=== PATIENT | male | born 1965 | race Caucasian/White ===

== ENCOUNTER 2017-11-05 05:53 | Emergency (ER) | payer BC ==
[2017-11-05 05:53] VITALS: BMI 22.2
[2017-11-05 06:04] VITALS: RESP 16; O2SAT 98
--- NOTE | 2017-11-05 06:45 | C.PDOC ---
History Of Present Illness 52 year old male presents to the ER with a complaint of a burning sensation to the left eye. Denies change in vision or discharge. 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 Chief Complaint (Nursing): Eye Problem History Per: Patient History/Exam Limitations: no limitations Onset/Duration Of Symptoms: Hrs Current Symptoms Are (Timing): Still Present Injury To Eye?: No Wears Contact Lens?: No Associated Symptoms: Other (Burning sensation). denies: Pain, Decreased Vision , Swelling, Itching, Discharge From Eye Recent travel outside of the [place]: No Past Medical History Reviewed: Historical Data, Nursing Documentation, Vital Signs Vital Signs: Last Vital Signs Temp 97.6 F 11/05/17 07:05 Pulse 80 11/05/17 07:05 Resp 16 11/05/17 07:05 BP 145/90 11/05/17 07:05 Pulse Ox 98 11/05/17 07:05 - Medical History PMH: No Chronic Diseases Surgical History: No Surg Hx Family History: States: Unknown Family Hx - Social History Hx Tobacco Use: No Hx Alcohol Use: Yes Hx Substance Use: No - Immunization History Hx Tetanus Toxoid Vaccination: No Hx Influenza Vaccination: No Hx Pneumococcal Vaccination: No Review Of Systems Constitutional: Negative for: Fever, Chills Eyes: Positive for: Other (Foreign body sensation). Negative for: Pain, Vision Change Physical Exam - Physical Exam Appears: Non-toxic, No Acute Distress Skin: Normal Color, Warm, Dry Head: Atraumatic, Normacephalic Eye(s): bilateral: Normal Inspection (Fluorescein exam was negative. Visual acuity is 20/20), PERRL, EOMI Ear(s): Bilateral: Normal Nose: Normal Oral Mucosa: Moist Lips: Normal Appearing Neurological/Psych: Oriented x3, Normal Speech ED Course And Treatment O2 Sat by Pulse Oximetry: 98 (Room air) Pulse Ox Interpretation: Normal Medical Decision Making Medical Decision Making: Patient reassured and instructed to follow up with addiction social worker for further evaluation. Disposition - Disposition Referrals: Jack Sanchez [Staff Provider] - Disposition: HOME/ ROUTINE Disposition Time: 20:36 Condition: STABLE Additional Instructions: return if eye pain worsening Prescriptions: Dextran 70/Hypromellose/Pf [Artificial Tears Drops] 1 each OP BID 7 Days #1 droperette Instructions: Eye Pain (ED) Forms: [employer] [facility] ([place] Islander) - Clinical Impression Clinical Impression: Pain in eye, Disorder of vision, Conjunctivitis - Scribe Statement The provider has reviewed the documentation as recorded by the Scribfrance Ortiz All medical record entries made by the Scribe were at my direction and personally dictated by me. I have reviewed the chart and agree that the record accurately reflects my personal performance of the history, physical exam, medical decision making, and the department course for this patient. I have also personally directed, reviewed, and agree with the discharge instructions and disposition.
[2017-11-05] MEDS ORDERED: Fluorescein 1 mg Ophthalmic Strip OS ONE (06:48)
[2017-11-05] MEDS ORDERED: Fluorescein 1 mg Ophthalmic Strip ONE (06:48)
[2017-11-05] MEDS ORDERED: Tetracaine 0.5% Ophth 2 ML BOTTLE OS ONE (06:50)
[2017-11-05] MEDS ORDERED: Tetracaine 0.5% Ophth (OR ONLY) ONE (06:51)
[2017-11-05 07:07] VITALS: BP 145/90; PULSE 80; TEMP 97.6
== END 2017-11-05 07:07 | disposition home or self-care (01) ==
LOC: C.ER 05:53
DX: H10.9 Unspecified conjunctivitis (principal); H53.9 Unspecified visual disturbance; H57.12 Ocular pain, left eye

== ENCOUNTER 2017-11-27 12:04 | Emergency (ER) | payer BC ==
[2017-11-27 12:04] VITALS: BMI 22.2
[2017-11-27 12:11] VITALS: TEMP 97.8
--- NOTE | 2017-11-27 13:28 | C.PDOC ---
History Of Present Illness 52-year-old male, presents to the emergency department with complaints of intermittent left-sided chest pain for the past 2 weeks. Pain is non radiating and associated with a mild generalized headache. Patient states he was evaluated by clinic and "everything was normal." Patient reports chest pain returned at 01:00 this morning and has not gone away since. Denies cough, trauma , numbness, weakness, SOB, fever, or back pain. Time Seen by Provider: 11/27/17 12:52 Chief Complaint (Nursing): Chest Pain History Per: Patient History/Exam Limitations: no limitations Onset/Duration Of Symptoms: Days Current Symptoms Are (Timing): Still Present Severity: Moderate Past Medical History Reviewed: Historical Data, Nursing Documentation, Vital Signs Vital Signs: Last Vital Signs Temp 97.8 F 11/27/17 12:07 Pulse 68 11/27/17 16:13 Resp 20 11/27/17 16:13 BP 120/80 11/27/17 16:13 Pulse Ox 100 11/27/17 18:56 Family History: States: No Known Family Hx - Social History Hx Tobacco Use: No Hx Alcohol Use: Yes Hx Substance Use: No - Immunization History Hx Tetanus Toxoid Vaccination: No Hx Influenza Vaccination: No Hx Pneumococcal Vaccination: No Review Of Systems Except As Marked, All Systems Reviewed And Found Negative. Constitutional: Negative for: Fever, Chills Cardiovascular: Positive for: Chest Pain. Negative for: Palpitations Respiratory: Negative for: Shortness of Breath Gastrointestinal: Negative for: Nausea, Vomiting Neurological: Positive for: Headache. Negative for: Dizziness Physical Exam - Physical Exam Appears: Non-toxic, No Acute Distress Skin: Warm, Dry, No Rash Head: Atraumatic, Normacephalic Eye(s): bilateral: Normal Inspection, PERRL, EOMI Nose: Normal Oral Mucosa: Moist Lips: Normal Appearing Throat: Normal Neck: Normal ROM Cardiovascular: Rhythm Regular, No Murmur Respiratory: Normal Breath Sounds Gastrointestinal/Abdominal: Soft, No Tenderness Back: Normal Inspection Extremity: Normal ROM Neurological/Psych: Oriented x3, Normal Speech ED Course And Treatment - Laboratory Results Result Diagrams: 11/27/17 13:56 11/27/17 13:56 ECG: Interpreted By Me ECG Rhythm: Sinus Rhythm ECG Interpretation: Normal Rate From EC O2 Sat by Pulse Oximetry: 100 (on RA) Pulse Ox Interpretation: Normal Progress Note: On re-exam, the patient reports improvement of symptoms. Lungs are CTA, heart is RRR, abdomen is soft, non-tender and tolerating PO well. Medical Decision Making Medical Decision Making: The patient has normal BP and no risk factors at this time. His chest pain has been over 2 weeks and does not requires observation to r/o ACS. Labs are normal and results were discussed with the patient. Disposition - Disposition Referrals: [facility] at [facility] [Outside] Disposition: HOME/ ROUTINE Disposition Time: 16:07 Condition: GOOD Additional Instructions: Follow up with the medical doctor within 1-2 days. Return if worsened. Prescriptions: Aspirin [Low Dose Aspirin EC] 81 mg PO DAILY #30 tablet. Instructions: Chest Pain (ED) Forms: [email or web address] [facility] (Macedonian) - Clinical Impression Clinical Impression: Chest pain - Scribe Statement The provider has reviewed the documentation as recorded by the Scribe (Roland Willis) All medical record entries made by the Scribe were at my direction and personally dictated by me. I have reviewed the chart and agree that the record accurately reflects my personal performance of the history, physical exam, medical decision making, and the department course for this patient. I have also personally directed, reviewed, and agree with the discharge instructions and disposition.
[2017-11-27] MEDS: Aspirin 325 mg EC Tablets PO STA (13:43)
[2017-11-27 14:00] LABS: BASO % 0.3 % (0.0-2.0); EOS # 0.2 K/uL (0.0-0.7); EOS % 2.6 % (0.0-4.0); HEMOGLOBIN 14.6 g/dL (12.0-18.0); LYMPH # 1.1 K/uL (1.0-4.3); LYMPH % 15.2 % (20.0-40.0); MEAN CELL VOLUME 88.6 fL (80.0-94.0); MEAN CORPUSCULAR HEMOGLOBIN 29.5 pg (27.0-31.0); MEAN CORPUSCULAR HGB CONC 33.3 g/dL (33.0-37.0); MEAN PLATELET VOLUME 9.1 fL (7.2-11.7); MONO # 0.4 K/uL (0.0-0.8); MONO % 5.8 % (0.0-10.0); NEUT # 5.3 K/uL (1.8-7.0); NEUT % 76.1 % (50.0-75.0); NRBC % 0.1 % (0.0-2.0); RBC 4.93 Mil/uL (4.40-5.90); RED CELL DISTRIBUTION WIDTH 12.9 % (11.5-14.5); WHITE BLOOD COUNT 6.9 K/uL (4.8-10.8)
[2017-11-27 15:25] VITALS: RESP 20
[2017-11-27 15:33] LABS: ALB/GLOB RATIO 1.1 (1.0-2.1); ALT/SGPT 44 U/L (21-72); AST/SGOT 56 U/L (17-59); BLOOD UREA NITROGEN 12 mg/dL (9-20); CALCIUM 8.6 mg/dl (8.6-10.4); GFR AFRICAN-AMERICAN > 60; GFR NON-AFRICAN AMERICAN > 60
--- NOTE | 2017-11-27 15:53 | RAD ---
HISTORY: chest pain COMPARISON: 04/27/2014 TECHNIQUE: Chest PA and lateral FINDINGS: LUNGS: No active pulmonary disease. PLEURA: No significant pleural effusion identified. No pneumothorax apparent. CARDIOVASCULAR: Normal. OSSEOUS STRUCTURES: No significant abnormalities. VISUALIZED UPPER ABDOMEN: Normal. OTHER FINDINGS: None. IMPRESSION: No active disease. No interval pathology noted
[2017-11-27 16:14] VITALS: BP 120/80; PULSE 68
[2017-11-27 18:56] VITALS: O2SAT 100
== END 2017-11-27 17:01 | disposition home or self-care (01) ==
LOC: C.ER 12:04
DX: R07.9 Chest pain, unspecified (principal)

== ENCOUNTER 2018-01-07 18:40 | Emergency (ER) | payer BC ==
[2018-01-07 18:41] VITALS: BMI 22.2
[2018-01-07 20:04] VITALS: BP 130/87; PULSE 83; RESP 16; TEMP 97.9; O2SAT 98
[2018-01-07] MEDS ORDERED: Fluorescein 1 mg Ophthalmic Strip ONE (20:15)
[2018-01-07] MEDS ORDERED: Tetracaine 0.5% Ophth (OR ONLY) ONE (20:16)
--- NOTE | 2018-01-07 20:38 | C.PDOC ---
History Of Present Illness 52 y/o male presents to the ER complaining of left eye pain which began after he was drilling a piece of metal. Patient notes that he had googles on but he felt like something went into his eye. Patient states that he washed his eyes but the pain persisted. Patient denies change in vision, discharge, double vision, or headache. hx of cataract Time Seen by Provider: 01/07/18 20:11 Chief Complaint (Nursing): Eye Problem History Per: Patient History/Exam Limitations: no limitations Onset/Duration Of Symptoms: Hrs Current Symptoms Are (Timing): Still Present Severity: Moderate Past Medical History Reviewed: Historical Data, Nursing Documentation, Vital Signs Vital Signs: Last Vital Signs Temp 97.9 F 01/07/18 19:56 Pulse 83 01/07/18 19:56 Resp 16 01/07/18 19:56 BP 130/87 01/07/18 19:56 Pulse Ox 98 01/07/18 21:52 - Medical History PMH: Anxiety, HTN Denies: Depression Other Surgeries: Hx of surgeries Family History: States: No Known Family Hx - Social History Hx Tobacco Use: No Hx Alcohol Use: Yes Hx Substance Use: No - Immunization History Hx Tetanus Toxoid Vaccination: No Hx Influenza Vaccination: Yes Hx Pneumococcal Vaccination: No Review Of Systems Except As Marked, All Systems Reviewed And Found Negative. Eyes: Positive for: Pain (left eye pain) Physical Exam - Physical Exam Appears: Non-toxic, No Acute Distress Skin: Normal Color, Warm Head: Atraumatic, Normacephalic Eye(s): bilateral: PERRL, EOMI, Other (bilateral pterygium, mild injection to left eye, no fluorescein uptake) Nose: Normal Oral Mucosa: Moist Neck: Supple Chest: Symmetrical Respiratory: No Accessory Muscle Use Extremity: Normal ROM Neurological/Psych: Oriented x3, Normal Speech ED Course And Treatment O2 Sat by Pulse Oximetry: 98 (RA) Pulse Ox Interpretation: Normal Progress Note: Eye was irrigated by RN. Patient discharged with prescription for Tobramycin. Instructed to follow up with ophtho tomorrow. Disposition - Disposition Referrals: Jack Sanchez [Staff Provider] - Disposition: HOME/ ROUTINE Disposition Time: 20:37 Condition: STABLE Additional Instructions: Follow up with your primary medical doctor or clinic in 2-5 days for further evaluation. Take medications as prescribed. Return to the emergency department at any time if symptoms persist or worsen. 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 - Scribe Statement The provider has reviewed the documentation as recorded by the Scribe Lorenzo Marie Provider Attestation All medical record entries made by the Margaritaibe were at my direction and personally dictated by me. I have reviewed the chart and agree that the record accurately reflects my personal performance of the history, physical exam, medical decision making, and the department course for this patient. I have also personally directed, reviewed, and agree with the discharge instructions and disposition.
== END 2018-01-07 21:05 | disposition home or self-care (01) ==
LOC: C.ER 18:40
DX: S05.02XA Injury of conjunctiva and corneal abrasion without foreign body, left eye, initial encounter (principal); X58.XXXA Exposure to other specified factors, initial encounter

== ENCOUNTER 2018-07-09 16:40 | Emergency (ER) | payer SELFPAY ==
[2018-07-09 16:40] VITALS: BMI 22.2
[2018-07-09 16:44] VITALS: BP 129/90; PULSE 80; TEMP 98.8; O2SAT 99
[2018-07-09] MEDS ORDERED: Naproxen 550 mg Tab PO STA (17:13)
[2018-07-09] MEDS ORDERED: Naproxen 550 mg Tab PO ONE ×2 (17:20→17:25)
--- NOTE | 2018-07-09 17:30 | C.PDOC ---
History Of Present Illness 52 y/o male presents to the ER complaining of left knee pain which began yesterday. Patient states that he stood up from the floor when he felt a crack and twist in his knee. Patient reports that the pain persists prompting his visit to the ER. He did not take any pain medications. Denies having changes in sensation, direct trauma, weakness, and fever. Time Seen by Provider: 07/09/18 17:04 Chief Complaint (Nursing): Lower Extremity Problem/Injury History Per: Patient History/Exam Limitations: no limitations Onset/Duration Of Symptoms: Days Current Symptoms Are (Timing): Still Present - Knee Description Of Injury: Twisted (left knee) Past Medical History Reviewed: Historical Data, Nursing Documentation, Vital Signs Vital Signs: Last Vital Signs Temp 98.8 F 07/09/18 16:46 Pulse 80 07/09/18 16:46 Resp 18 07/09/18 17:46 BP 129/90 07/09/18 16:46 Pulse Ox 99 07/09/18 18:01 - Medical History PMH: Anxiety, HTN Denies: Depression Other Surgeries: Hx of surgeries Family History: States: No Known Family Hx - Social History Hx Tobacco Use: No Hx Alcohol Use: Yes Hx Substance Use: No - Immunization History Hx Tetanus Toxoid Vaccination: No Hx Influenza Vaccination: Yes Hx Pneumococcal Vaccination: No Review Of Systems Except As Marked, All Systems Reviewed And Found Negative. Constitutional: Negative for: Fever, Chills Musculoskeletal: Positive for: Other (left knee pain) Neurological: Negative for: Weakness, Numbness Physical Exam - Physical Exam Appears: Non-toxic, No Acute Distress Skin: Normal Color, Warm, Dry Head: Atraumatic, Normacephalic Eye(s): bilateral: Normal Inspection, EOMI Nose: Normal Oral Mucosa: Moist Neck: Normal ROM, Supple Chest: Symmetrical Respiratory: No Accessory Muscle Use Extremity: Normal ROM, Tenderness (tenderness to medial aspect of right knee), No Calf Tenderness, Capillary Refill (<2 sec), No Deformity, No Swelling Extremity: Bilateral: Normal Color And Temperature, Normal ROM Pulses: Left Dorsalis Pedis: Normal, Right Dorsalis Pedis: Normal Neurological/Psych: Oriented x3, Normal Speech, Normal Sensation ED Course And Treatment O2 Sat by Pulse Oximetry: 99 (RA) Pulse Ox Interpretation: Normal - Other Rad X-Ray- Left Knee X-Ray: Viewed By Me, Read By Radiologist Interpretation: PROCEDURE: Left Knee Radiographs. HISTORY: COMPARISON: None available. FINDINGS: BONES: No acute displaced fracture. Small suprapatellar enthesophyte. JOINTS: No dislocation. JOINT EFFUSION: No significant joint effusion. OTHER FINDINGS: None. IMPRESSION: No acute displaced fracture, dislocation, or significant joint effusion identified. If symptoms persist, or if there is continued clinical concern, x-ray follow-up in 7-10 days should be considered. Progress Note: X-Ray- Left Knee is negative for fractures.Knee brace has been applied by ct scan tech. Patient has been discharged and instructed to follow up with orthopedist in 2-5 days. Disposition - Disposition Referrals: Gokul Matamoros III, MD [Staff Provider] - [facility] at [facility] [Outside] Disposition: HOME/ ROUTINE Disposition Time: 17:29 Condition: STABLE Additional Instructions: Vaya a aquino mdico o la clnica en 2-5 villegas sin falta, para mas evaluacin. [place] los medicamentos samuel indicado. Volver a la richi de emergencia en cualquier momento si los sntomas persisten o empeoran. 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 - Scribe Statement The provider has reviewed the documentation as recorded by the Margaritaibe Lorenzo Marie Provider Attestation All medical record entries made by the Scribe were at my direction and personally dictated by me. I have reviewed the chart and agree that the record accurately reflects my personal performance of the history, physical exam, medical decision making, and the department course for this patient. I have also personally directed, reviewed, and agree with the discharge instructions and disposition.
--- NOTE | 2018-07-09 17:35 | RAD ---
PROCEDURE: Left Knee Radiographs. HISTORY: COMPARISON: None available. FINDINGS: BONES: No acute displaced fracture. Small suprapatellar enthesophyte. JOINTS: No dislocation. JOINT EFFUSION: No significant joint effusion. OTHER FINDINGS: None. IMPRESSION: No acute displaced fracture, dislocation, or significant joint effusion identified. If symptoms persist, or if there is continued clinical concern, x-ray follow-up in 7-10 days should be considered.
[2018-07-09 17:47] VITALS: RESP 18
== END 2018-07-09 17:47 | disposition home or self-care (01) ==
LOC: C.ER 16:40
DX: S83.92XA Sprain of unspecified site of left knee, initial encounter (principal); X50.9XXA Other and unspecified overexertion or strenuous movements or postures, initial encounter